=== PATIENT | male | born 1965 | race Caucasian/White ===

== ENCOUNTER 2020-06-21 09:45 | Outpatient (REF) | payer OTHER, SELFPAY ==
[2020-06-26 12:37] LABS: Testosterone, Total 140 ng/dL (250-1100)
== END 2020-06-21 09:46 | disposition home or self-care (01) ==
LOC: HO.LAB 09:45
PROVIDERS: PCP Internal Medicine Sports Medicine; Visit Provider Urology
DX: E29.1 Testicular hypofunction (principal)
CPT/HCPCS: 36415; 84403

== ENCOUNTER → 2020-08-31 13:14 | Outpatient (BNVA) | payer OTHER, SELFPAY | PROVIDERS: Visit Provider Urology ==

== ENCOUNTER 2021-02-13 09:30 | Outpatient (REF) | payer OTHER, SELFPAY ==
[2021-02-13 11:00] LABS: Hematocrit 48.2 % (42-52); Hemoglobin 16.7 g/dl (14.0-18.0); Mean Corpuscular HGB Conc 34.6 g/dl (31.0-36.0); Mean Corpuscular Hemoglobin 30.8 pg (27.0-33.0); Mean Corpuscular Volume 88.9 fL (80-98); Mean Platelet Volume 10.6 fL (9.4-12.4); Platelet Count 202 X10*3/uL (160-400); Red Blood Count 5.42 X10*6/uL (4.60-5.80); Red Cell Distribution Width 12.4 % (11.0-16.0)
[2021-02-17 11:06] LABS: Testosterone, Total 182 ng/dL (250-1100)
== END 2021-02-13 09:31 | disposition home or self-care (01) ==
LOC: HO.LAB 09:30
PROVIDERS: Visit Provider Urology
DX: Z12.5 Encounter for screening for malignant neoplasm of prostate (principal); E29.1 Testicular hypofunction; N13.8 Other obstructive and reflux uropathy; N40.1 Benign prostatic hyperplasia with lower urinary tract symptoms
CPT/HCPCS: 36415; 84153; 84403; 85027

== ENCOUNTER → 2021-03-06 12:55 | Outpatient (BNVA) | payer OTHER, SELFPAY | PROVIDERS: Visit Provider Urology ==

== ENCOUNTER 2021-04-17 08:53 | Outpatient (REF) | payer OTHER, SELFPAY ==
[2021-04-17 10:33] LABS: PSA,Total (Free>4and<10) 1.73 ng/mL (0.00-4.00)
== END 2021-04-17 08:54 | disposition home or self-care (01) ==
LOC: HO.LAB 08:53
PROVIDERS: PCP Internal Medicine; Visit Provider Urology
DX: Z12.5 Encounter for screening for malignant neoplasm of prostate (principal); R97.20 Elevated prostate specific antigen [PSA]
CPT/HCPCS: 36415; 84153

== ENCOUNTER → 2021-05-08 15:06 | Outpatient (BNVA) | payer OTHER, SELFPAY | PROVIDERS: PCP Internal Medicine; Visit Provider Urology ==

== ENCOUNTER 2021-10-16 09:05 | Outpatient (REF) | payer OTHER, SELFPAY ==
[2021-10-22 02:21] LABS: Testosterone, Total 756 ng/dL (250-1100)
== END 2021-10-16 09:06 | disposition home or self-care (01) ==
LOC: HO.LAB 09:05
PROVIDERS: PCP Internal Medicine; Visit Provider Urology
DX: E29.1 Testicular hypofunction (principal); Z12.5 Encounter for screening for malignant neoplasm of prostate
CPT/HCPCS: 36415; 84153; 84403

== ENCOUNTER → 2021-11-06 15:00 | Outpatient (BNVA) | payer OTHER, SELFPAY | PROVIDERS: PCP Internal Medicine; Visit Provider Urology | DX: R97.20 Elevated prostate specific antigen [PSA] (principal) ==

== ENCOUNTER 2022-04-17 08:48 | Outpatient (REF) | payer OTHER, SELFPAY ==
[2022-04-17 10:01] LABS: Hematocrit 49.5 % (42.0-52.0)
[2022-04-17 10:52] LABS: Prostate Specific Antigen 3.18 ng/mL (<0.05-4.0)
[2022-04-22 18:52] LABS: Testosterone, Total 691 ng/dL (250-1100)
== END 2022-04-17 08:49 | disposition home or self-care (01) ==
LOC: HO.LAB 08:48
PROVIDERS: PCP Internal Medicine; Visit Provider Urology
DX: Z12.5 Encounter for screening for malignant neoplasm of prostate (principal); E29.1 Testicular hypofunction
CPT/HCPCS: 36415; 84153; 84403; 85014

== ENCOUNTER 2022-05-10 08:55 | Outpatient (AMB) | payer OTHER, SELFPAY ==
--- NOTE | 2022-05-10 08:55 | A.OFFVIS_ITS ---
Intake Intake Visit Reasons: 6 month Labs(set) Intake Note: Patient is present for Telephone LABS Follow Up Urology Medication: Tadalafil, Testosterone Blood Thinner: None Allergies No Known Allergies Allergy (Verified 06/19/23 10:26) Medication List - Last Reconciled 05/10/22 by Yunior Lackey MD methocarbamol 750 mg PO BEDTIME PRN tadalafil 5 mg PO DAILY PRN 90 days testosterone cypionate (Depo-Testosterone) 100 mg (0.5 mL) IM QWEEK 4 weeks vardenafil mg PO HPI HPI Comments History of Present Illness Details Maxime is a pleasant male. He is seen for the following urologic conditions - hypogonadism - erectile dysfunction Telemedicine evaluation 15 minute consultation [employer] zehra Video attempted Good response to 5 mg tadalafil Would like to continue Testosterone in stable patent Hypogonadism Long-term replacement Uses IM injections of testosterone 1 week cycle - Inj Sat Lab Wed Laboratory investigations - typically runs in the 5-600 Laboratory investigations - 12/26 PSA 1.5, T 797, 02/27 PSA 7.8, T 1 82, 04/29 1.7, 10/28 T 750 2.0 48, 04/30 691 P 3.2 49.5 6 month follow-up lab work Erectile dysfunction Able to obtain but cannot maintain erection Good response to daily tadalafil [facility] Medical History Hypogonadism in male Review of Systems Const All systems reviewed & are unremarkable except as noted in HPI and below Reports no additional complaints Resp Reports no additional complaints GI Reports no additional complaints Reports as per HPI Musc Reports no additional complaints Physical Exam Telemedicine evaluation Appropriate responses Regular breathing rate and rhythm HEENT Head: Yes normal to inspection Ears: hearing grossly normal bilaterally Eyes General: appearance normal, both eyes and all related structures Neck Neck: Yes normal visual inspection Chest Chest palpation & inspection: normal inspection of the chest Resp Effort & Inspection: normal respiratory effort and able to speak in complete sentences Assessment & Plan Assessment & Plan (1) Erectile dysfunction due to arterial insufficiency: Code(s): N52.01 - Erectile dysfunction due to arterial insufficiency (2) Hypogonadism in male: Code(s): E29.1 - Testicular hypofunction (3) Elevated PSA: Code(s): R97.20 - Elevated prostate specific antigen [PSA] Plan Continue current therapy Medications: Refilled testosterone cypionate (Depo-Testosterone) 100 mg (0.5 mL) IM QWEEK 2 mL 5RF 4 weeks E29.1 - Testicular hypofunction, [id number] tadalafil 5 mg PO DAILY PRN 90 tabs 1RF sexual activity 90 days N52.01 - Erectile dysfunction due to arterial insufficiency Patient Instructions: The patient had an opportunity to ask questions regarding treatment plan. All questions were answered. Imaging studies, laboratory studies and physical exam results were discussed and reviewed in detail. No major barriers to understanding were identified. The patient expressed understanding and agreement with the above treatment plan. The patient is aware they should contact our office by phone for worsening of their current condition or the appearance of new symptoms. Compliance is encouraged with any medications and followup testing that is ordered. It is a privilege to be allowed the opportunity to participate in the urologic care of your patient. If you have any questions or concerns regarding treatment for the above conditions please do not hesitate to contact me. The office telephone contact is [phone]. This note is constructed using voice recognition software. While every effort has been made to ensure accuracy anti air warfare operations officer errors may have been included. Yours sincerely, Dr Yunior Lackey MD, [facility] Telehealth Telehealth Location of provider rendering services: practice address Location of patient: address on file Patient Identification confirmed using: Name, : Yes Telehealth method: voice only Patient verbally consented to treatment: Yes Patient verbally consented to billing insurance company: Yes Patient informed of any privacy concerns related to visit: Yes Coding Level of Care Code Tele Est Pt Level 3 (65928) Diagnoses Erectile dysfunction due to arterial insufficiency N52.01 Hypogonadism in male E29.1 Elevated PSA R97.20
== END 2022-05-10 11:27 | disposition home or self-care (01) ==
LOC: HO.HUSH 08:55
PROVIDERS: PCP Internal Medicine; Visit Provider Urology
DX: N52.01 Erectile dysfunction due to arterial insufficiency (principal); E29.1 Testicular hypofunction; R97.20 Elevated prostate specific antigen [PSA]
CPT/HCPCS: 99442; 99499

== ENCOUNTER 2022-11-08 07:48 | Outpatient (REF) | payer OTHER, SELFPAY ==
[2022-11-08 09:03] LABS: Hematocrit 51.3 % (42.0-52.0); Hemoglobin 17.8 g/dl (14.0-18.0); Mean Corpuscular HGB Conc 34.7 g/dl (31.0-36.0); Mean Corpuscular Hemoglobin 30.3 pg (27.0-33.0); Mean Corpuscular Volume 87.4 fL (80.0-98.0); Platelet Count 196 X10*3/uL (160-400); Red Blood Count 5.87 X10*6/uL (4.60-5.80); Red Cell Distribution Width 12.4 % (11.0-16.0); White Blood Count 5.5 X10*3/uL (4.8-10.8)
[2022-11-08 09:48] LABS: PSA,Total (Free>4and<10) 3.89 ng/mL (0.00-4.00)
[2022-11-15 19:04] LABS: Testosterone, Free 192.6 pg/mL (35.0-155.0); Testosterone, Total 993 ng/dL (250-1100)
== END 2022-11-08 07:49 | disposition home or self-care (01) ==
LOC: HO.LAB 07:48
PROVIDERS: PCP Internal Medicine; Visit Provider Urology
DX: Z12.5 Encounter for screening for malignant neoplasm of prostate (principal); E29.1 Testicular hypofunction; R97.20 Elevated prostate specific antigen [PSA]
CPT/HCPCS: 36415; 84153; 84402; 84403; 85027

== ENCOUNTER 2022-11-26 11:35 | Outpatient (AMB) | payer OTHER, SELFPAY ==
--- NOTE | 2022-11-26 11:48 | A.OFFVIS_ITS ---
Intake Intake Visit Reasons: 6M LABS(set) Intake Note: Patient presents today for 6mo follow-up with Labs Results. Technical Project Coordinator Required: No Accompanied by: Self / Same As Patient Allergies No Known Allergies Allergy (Verified 11/26/22 11:49) Medication List - Last Reconciled 11/26/22 by Yunior Lackey MD methocarbamol 750 mg PO BEDTIME PRN tadalafil 5 mg PO DAILY PRN 90 days testosterone cypionate (Depo-Testosterone) 80 mg (0.4 mL) IM QWEEK 4 weeks vardenafil mg PO HPI HPI Comments History of Present Illness Details Maxime is a pleasant male. He is seen for the following urologic conditions - hypogonadism - erectile dysfunction Friday labs Hypogonadism Long-term replacement Uses IM injections of testosterone 1 week cycle - Inj Sat Lab Wed Laboratory investigations - typically runs in the 5-600 Laboratory investigations - 12/26 PSA 1.5, T 797, 02/27 PSA 7.8, T 1 82, 04/29 1.7, 10/28 T 750 2.0 48, 04/30 691 P 3.2 49.5, 11/29 993 3.9 51 6 month follow-up lab work Erectile dysfunction Able to obtain but cannot maintain erection Good response to daily tadalafil [facility] Medical History Hypogonadism in male Review of Systems Const Denies chills and Denies fever(s) Card Reports no additional complaints and Denies syncope Resp Denies cough GI Denies abdominal pain and Denies heartburn Reports as per HPI and Denies change in libido Neuro Denies syncope Psych Denies change in libido Endo Denies change in libido Physical Exam Const General: cooperative, healthy appearing, comfortable and no acute distress Orientation/consciousness: patient oriented x3 HEENT Face and sinus: Yes normal facial exam Mouth: moist mucous membranes Neck Neck: Yes normal visual inspection, Yes full ROM and Yes trachea midline Chest Chest palpation & inspection: normal inspection of the chest Resp Effort & Inspection: normal respiratory effort, able to speak in complete sentences and no respiratory distress GI Inspection: Yes normal to inspection Back/Spine/Pelvis Cervical Spine: normal cervical lordosis Thoracic/Lumbar Spine: thoracic and lumbar spine normal to inspection Skin General skin exam: no rashes or lesions noted Neuro General: patient oriented x3, gait normal, tone normal and moves all extremities Extrem General: Yes normal to inspection and Yes capillary refill normal Assessment & Plan Assessment & Plan (1) Elevated PSA: Code(s): R97.20 - Elevated prostate specific antigen [PSA] (2) Erectile dysfunction due to arterial insufficiency: Code(s): N52.01 - Erectile dysfunction due to arterial insufficiency (3) Hypogonadism in male: Code(s): E29.1 - Testicular hypofunction Plan Six month follow-up Orders: Orders Complete Blood Count no Diff 6 Months E29.1 - Testicular hypofunction Prostate Specific Antigen 6 Months E29.1 - Testicular hypofunction Testosterone, Total 6 Months E29.1 - Testicular hypofunction Patient Instructions: Imaging studies, laboratory and physical exam results were discussed and reviewed in detail. No major barriers to patient understanding were identified. An opportunity to ask questions regarding the treatment plan was provided. All questions were answered. The patient expressed understanding and agreement with the above treatment plan. The patient is aware they should contact our office by phone for worsening of their current condition or the appearance of new urologic symptoms. Compliance is encouraged with any medications and followup testing that is ordered. It is a privilege to participate in the urologic care of your patient. If you have any questions or concerns regarding treatment for the above conditions, or other urologic issues, please do not hesitate to contact me. The office telephone contact is [phone]. This note is constructed using voice recognition software. While every effort has been made to ensure accuracy prototype fabricator errors may have been included. Yours sincerely, Dr Yunior Lackey MD, [facility] - Urology Providers of Expert, Compassionate Care for the Genitourinary System Coding Level of Care Code Est Pt Level 3 (35973) Diagnoses Elevated PSA R97.20 Erectile dysfunction due to arterial insufficiency N52.01 Hypogonadism in male E29.1
== END 2022-11-26 12:55 | disposition home or self-care (01) ==
LOC: HO.HUSH 11:35
PROVIDERS: PCP Internal Medicine; Visit Provider Urology
DX: R97.20 Elevated prostate specific antigen [PSA] (principal); N52.01 Erectile dysfunction due to arterial insufficiency; E29.1 Testicular hypofunction
CPT/HCPCS: 99213

== ENCOUNTER → 2022-11-26 11:35 | Outpatient (BNVA) | payer OTHER, SELFPAY | PROVIDERS: PCP Internal Medicine; Visit Provider Urology ==

== ENCOUNTER 2023-05-09 07:27 | Outpatient (REF) | payer OTHER, SELFPAY ==
[2023-05-09 07:44] LABS: Hemoglobin 17.1 g/dl (14.0-18.0); Mean Corpuscular HGB Conc 34.2 g/dl (31.0-36.0); Mean Corpuscular Hemoglobin 31.1 pg (27.0-33.0); Mean Corpuscular Volume 90.9 fL (80.0-98.0); Mean Platelet Volume 10.5 fL (9.4-12.4); Platelet Count 214 X10*3/uL (160-400); Red Cell Distribution Width 12.4 % (11.0-16.0); White Blood Count 5.1 X10*3/uL (4.8-10.8)
[2023-05-09 08:35] LABS: Prostate Specific Antigen 6.05 ng/mL (<0.05-4.0)
[2023-05-13 14:13] LABS: Testosterone, Total 628 ng/dL (250-1100)
== END 2023-05-09 07:28 | disposition home or self-care (01) ==
LOC: HO.LAB 07:27
PROVIDERS: PCP Internal Medicine; Visit Provider Urology
DX: Z12.5 Encounter for screening for malignant neoplasm of prostate (principal); E29.1 Testicular hypofunction
CPT/HCPCS: 36415; 84153; 84403; 85027

== ENCOUNTER 2023-06-19 10:23 | Outpatient (AMB) | payer OTHER, SELFPAY ==
--- NOTE | 2023-06-19 10:24 | MHC.OFFVIS ---
Intake Intake Visit Reasons: LABS Follow Up (set) Intake Note: Patient is Present for Telephone Follow Up labs Urology Med: Tadalafil, Testosterone Antibiotic Allergy: None Blood Thinner: None PSA: 05/09/2023- 6.05 Total Testosterone- 05/09/2023- 628 Allergies No Known Allergies Allergy (Verified 06/19/23 10:26) HPI HPI Comments History of Present Illness Details Maxime is a pleasant male. He is seen for the following urologic conditions - hypogonadism - erectile dysfunction Telemedicine Evaluation 15 min Consultation [employer] Susi Video Discussed current lab work Testosterone in good range Using 0.4 cc weekly PSA noted to jump Prior jump in 2020 Discussed PSA variability with coffee, exercise, ejaculation within 24 hours He is comfortable waiting and repeating labs in 6 months Continue good response to daily Cialis Friday labs Hypogonadism Long-term replacement Uses IM injections of testosterone 1 week cycle - Inj Sat Lab Wed Laboratory investigations - typically runs in the 5-600 Laboratory investigations - 12/26 PSA 1.5, T 797, 02/27 PSA 7.8, T 182, 04/29 1.7, 10/28 T 750 2.0 48, 04/30 691 P 3.2 49.5, 11/29 993 3.9 51, 05/31 628 6 50 6 month follow-up lab work Erectile dysfunction Able to obtain but cannot maintain erection Good response to daily tadalafil PFSH Medical History Hypogonadism in male Review of Systems Const All systems reviewed & are unremarkable except as noted in HPI and below Reports no additional complaints Resp Reports no additional complaints GI Reports no additional complaints Reports as per HPI Musc Reports no additional complaints Physical Exam Telemedicine evaluation Appropriate responses Regular breathing rate and rhythm HEENT Head: Yes normal to inspection Ears: hearing grossly normal bilaterally Eyes General: appearance normal, both eyes and all related structures Neck Neck: Yes normal visual inspection Chest Chest palpation & inspection: normal inspection of the chest Resp Effort & Inspection: normal respiratory effort and able to speak in complete sentences Assessment & Plan Assessment & Plan (1) Elevated PSA: Code(s): R97.20 - Elevated prostate specific antigen [PSA] (2) Erectile dysfunction due to arterial insufficiency: Code(s): N52.01 - Erectile dysfunction due to arterial insufficiency (3) Hypogonadism in male: Code(s): E29.1 - Testicular hypofunction Plan 6 month follow-up Orders: Orders Prostate Specific Antigen 6 Months E29.1 - Testicular hypofunction Testosterone, Total 6 Months E29.1 - Testicular hypofunction Complete Blood Count no Diff 6 Months E29.1 - Testicular hypofunction Medications: Refilled tadalafil 5 mg PO DAILY 90 days PRN 90 tabs 1RF sexual activity N52.01 - Erectile dysfunction due to arterial insufficiency testosterone cypionate (Depo-Testosterone) 80 mg (0.4 mL) IM QWEEK 4 weeks 2 mL 5RF E29.1 - Testicular hypofunction, [id number] Patient Instructions: Imaging studies, laboratory and physical exam results were discussed and reviewed in detail. No major barriers to patient understanding were identified. An opportunity to ask questions regarding the treatment plan was provided. All questions were answered. The patient expressed understanding and agreement with the above treatment plan. The patient is aware they should contact our office by phone for worsening of their current condition or the appearance of new urologic symptoms. Compliance is encouraged with any medications and followup testing that is ordered. It is a privilege to participate in the urologic care of your patient. If you have any questions or concerns regarding treatment for the above conditions, or other urologic issues, please do not hesitate to contact me. The office telephone contact is [phone]. This note is constructed using voice recognition software. While every effort has been made to ensure accuracy continuous weld pipe mill supervisor errors may have been included. Yours sincerely, Dr Yunior Lackey MD, [facility] - Urology Providers of Expert, Compassionate Care for the Genitourinary System Telehealth Telehealth Location of provider rendering services: practice address Location of patient: address on file Patient Identification confirmed using: Name, : Yes Telehealth method: video Patient verbally consented to treatment: Yes Patient verbally consented to billing insurance company: Yes Patient informed of any privacy concerns related to visit: Yes Coding Level of Care Code Tele Est Pt Level 4 (94325) Diagnoses Elevated PSA R97.20 Erectile dysfunction due to arterial insufficiency N52.01 Hypogonadism in male E29.1
== END 2023-06-19 10:56 | disposition home or self-care (01) ==
LOC: HO.HUSH 10:23
PROVIDERS: PCP Internal Medicine; Visit Provider Urology
DX: R97.20 Elevated prostate specific antigen [PSA] (principal); N52.01 Erectile dysfunction due to arterial insufficiency; E29.1 Testicular hypofunction
CPT/HCPCS: 99213

== ENCOUNTER → 2023-06-19 10:23 | Outpatient (BNVA) | payer OTHER, SELFPAY | PROVIDERS: PCP Internal Medicine; Visit Provider Urology ==

== ENCOUNTER 2023-11-21 08:15 | Outpatient (REF) | payer OTHER, SELFPAY ==
[2023-11-21 09:47] LABS: Hematocrit 50.3 % (42.0-52.0); Hemoglobin 17.6 g/dl (14.0-18.0); Mean Corpuscular Hemoglobin 31.2 pg (27.0-33.0); Mean Corpuscular Volume 89.2 fL (80.0-98.0); Mean Platelet Volume 10.8 fL (9.4-12.4); Platelet Count 233 X10*3/uL (160-400); Red Blood Count 5.64 X10*6/uL (4.60-5.80); Red Cell Distribution Width 12.9 % (11.0-16.0); White Blood Count 5.9 X10*3/uL (4.8-10.8)
[2023-11-21 10:29] LABS: Prostate Specific Antigen 4.46 ng/mL (<0.05-4.0)
[2023-11-27 13:34] LABS: Testosterone, Total 800 ng/dL (250-1100)
== END 2023-11-21 08:16 | disposition home or self-care (01) ==
LOC: HO.LAB 08:15
PROVIDERS: PCP Internal Medicine Hematology & Oncology; Visit Provider Urology
DX: E29.1 Testicular hypofunction (principal); Z12.5 Encounter for screening for malignant neoplasm of prostate
CPT/HCPCS: 36415; 84153; 84403; 85027

== ENCOUNTER 2023-12-25 10:30 | Outpatient (AMB) | payer OTHER, SELFPAY ==
--- NOTE | 2023-12-25 10:39 | MHC.OFFVIS ---
Intake Visit Reasons: 6m/labs(set) Intake Note: Patient presents today for follow up on: Elevated PSA, Erectile Dysfunction, Hypogonadism, and labs Urology Med: Tadalafil, Testosterone Antibiotic Allergy: None Blood Thinner: None PSA: 4.46 Total Testosterone: 800 Administrative Law Judge Required: No Accompanied by: Self / Same As Patient Allergies No Known Allergies Allergy (Verified 12/25/23 10:47) Medication List - Last Reconciled 12/25/23 by Yunior Lackey MD multivitamin 1 tab PO DAILY tadalafil 5 mg PO DAILY PRN 90 days testosterone cypionate (Depo-Testosterone) 80 mg (0.4 mL) IM QWEEK 4 weeks HPI Comments Details: Maxime is a pleasant male. He is seen for the following urologic conditions - hypogonadism - erectile dysfunction Six-month follow-up Discussed current lab work Testosterone in good range Using 0.4 cc weekly Persistent PSA variability Discussed PSA variability with coffee, exercise, ejaculation within 24 hours He is comfortable with current process Continue good response to daily Cialis Friday labs Hypogonadism Long-term replacement Uses IM injections of testosterone 1 week cycle - Inj Sat Lab Wed Laboratory investigations - typically runs in the 5-600 Laboratory investigations - 12/26 PSA 1.5, T 797, 02/27 PSA 7.8, T 182, 04/29 1.7, 10/28 T 750 2.0 48, 04/30 691 P 3.2 49.5, 11/29 993 3.9 51, 05/31 628 6.0 50, 11/30 T 800 Hct 50 PSA 4.5 6 month follow-up lab work Erectile dysfunction Able to obtain but cannot maintain erection Good response to daily tadalafil [facility] Medical History Hypogonadism in male Review of Systems Const Denies chills and Denies fever(s) Card Reports no additional complaints and Denies syncope Resp Denies cough GI Denies abdominal pain and Denies heartburn Reports as per HPI and Denies change in libido Neuro Denies syncope Psych Denies change in libido Endo Denies change in libido Physical Exam Const General: cooperative, healthy appearing, comfortable and no acute distress Orientation/consciousness: patient oriented x3 HEENT Face and sinus: Yes normal facial exam Mouth: moist mucous membranes Neck Neck: Yes normal visual inspection, Yes full ROM and Yes trachea midline Chest Chest palpation & inspection: normal inspection of the chest Resp Effort & Inspection: normal respiratory effort, able to speak in complete sentences and no respiratory distress GI Inspection: Yes normal to inspection Back/Spine/Pelvis Cervical Spine: normal cervical lordosis Thoracic/Lumbar Spine: thoracic and lumbar spine normal to inspection Skin General skin exam: no rashes or lesions noted Neuro General: patient oriented x3, gait normal, tone normal and moves all extremities Extrem General: Yes normal to inspection and Yes capillary refill normal Assessment & Plan Assessment & Plan (1) Erectile dysfunction due to arterial insufficiency: Code(s): N52.01 - Erectile dysfunction due to arterial insufficiency Category: Medical (2) Hypogonadism in male: Code(s): E29.1 - Testicular hypofunction Category: Medical Plan Six-month follow-up lab work tele Orders: Orders Prostate Specific Antigen 6 Months E29.1 - Testicular hypofunction Testosterone, Total 6 Months E29.1 - Testicular hypofunction Complete Blood Count no Diff 6 Months E29.1 - Testicular hypofunction Medications: Refilled tadalafil 5 mg PO DAILY 90 days PRN 90 tabs 1RF sexual activity N52.01 - Erectile dysfunction due to arterial insufficiency testosterone cypionate (Depo-Testosterone) 80 mg (0.4 mL) IM QWEEK 4 weeks 2 mL 5RF E29.1 - Testicular hypofunction, [id number] Patient Instructions: Imaging studies, laboratory and physical exam results were discussed and reviewed in detail. No major barriers to patient understanding were identified. An opportunity to ask questions regarding the treatment plan was provided. All questions were answered. The patient expressed understanding and agreement with the above treatment plan. The patient is aware they should contact our office by phone for worsening of their current condition or the appearance of new urologic symptoms. Compliance is encouraged with any medications and followup testing that is ordered. It is a privilege to participate in the urologic care of your patient. If you have any questions or concerns regarding treatment for the above conditions, or other urologic issues, please do not hesitate to contact me. The office telephone contact is [phone]. This note is constructed using voice recognition software. While every effort has been made to ensure accuracy mechanical insulator errors may have been included. Yours sincerely, Dr Yunior Lackey MD, [facility] - Urology Providers of Expert, Compassionate Care for the Genitourinary System Coding Level of Care Code Est Pt Level 3 (04108) Diagnoses Erectile dysfunction due to arterial insufficiency N52.01 Hypogonadism in male E29.1
== END 2023-12-25 10:55 | disposition home or self-care (01) ==
PROVIDERS: PCP Internal Medicine; Visit Provider Urology
DX: N52.01 Erectile dysfunction due to arterial insufficiency (principal); E29.1 Testicular hypofunction
CPT/HCPCS: 99213

== ENCOUNTER → 2023-12-25 10:30 | Outpatient (BNVA) | payer OTHER, SELFPAY | PROVIDERS: PCP Internal Medicine; Visit Provider Urology ==

== ENCOUNTER 2024-06-17 07:27 | Outpatient (REF) | payer BC, SELFPAY ==
[2024-06-17 07:59] LABS: Hematocrit 48.7 % (42.0-52.0); Hemoglobin 17.3 g/dl (14.0-18.0); Mean Corpuscular HGB Conc 35.5 g/dl (31.0-36.0); Mean Corpuscular Hemoglobin 30.6 pg (27.0-33.0); Mean Corpuscular Volume 86.2 fL (80.0-98.0); Mean Platelet Volume 9.9 fL (9.4-12.4); Platelet Count 214 X10*3/uL (160-400); Red Blood Count 5.65 X10*6/uL (4.60-5.80); Red Cell Distribution Width 12.2 % (11.0-16.0); White Blood Count 5.2 X10*3/uL (4.8-10.8)
[2024-06-17 08:37] LABS: Prostate Specific Antigen 3.55 ng/mL (<0.05-4.0)
[2024-06-22 02:23] LABS: Testosterone, Total 378 ng/dL (250-1100)
== END 2024-06-17 07:28 | disposition home or self-care (01) ==
LOC: HO.LAB 07:27
PROVIDERS: PCP Internal Medicine; Visit Provider Urology
DX: E29.1 Testicular hypofunction (principal); Z12.5 Encounter for screening for malignant neoplasm of prostate
CPT/HCPCS: 36415; 84153; 84403; 85027

== ENCOUNTER 2024-07-13 15:09 | Outpatient (AMB) | payer BC, SELFPAY ==
--- NOTE | 2024-07-13 15:10 | A.OFFVIS_ITS ---
Intake Visit Reasons: 6m/labs Intake Note: Patient is present for 6M/LABS Urology Medication:TADALAFIL,TESTOSTERONE Antibiotic Allergy:NONE Blood Thinner:NONE Manager Dish Required: No Allergies No Known Allergies Allergy (Verified 07/13/24 15:10) HPI Comments Details: Maxime is a pleasant male. He is seen for the following urologic conditions - hypogonadism - erectile dysfunction Six-month follow-up Telemedicine Evaluation 15 min Consultation [employer] Sus[employer] Video Discussed current lab work Testosterone low end range but lab work was delayed Using 0.4 cc weekly Persistent PSA variability Discussed PSA variability with coffee, exercise, ejaculation within 24 hours He is comfortable with current process Continue good response to daily Cialis Hypogonadism Long-term replacement Uses IM injections of testosterone 1 week cycle - Inj Sat Lab Wed Laboratory investigations - typically runs in the 5-600 Laboratory investigations - 12/26 PSA 1.5, T 797, 02/27 PSA 7.8, T 182, 04/29 1.7, 10/28 T 750 2.0 48, 04/30 691 P 3.2 49.5, 11/29 993 3.9 51, 05/31 628 6.0 50, 11/30 T 800 Hct 50 PSA 4.5, 07/03 380 6 month follow-up lab work Erectile dysfunction Able to obtain but cannot maintain erection Good response to daily tadalafil PFSH Medical History Hypogonadism in male Review of Systems Const All systems reviewed & are unremarkable except as noted in HPI and below Reports no additional complaints Resp Reports no additional complaints GI Reports no additional complaints Reports as per HPI Musc Reports no additional complaints Physical Exam Telemedicine evaluation Appropriate responses Regular breathing rate and rhythm HEENT Head: Yes normal to inspection Ears: hearing grossly normal bilaterally Eyes General: appearance normal, both eyes and all related structures Neck Neck: Yes normal visual inspection Chest Chest palpation & inspection: normal inspection of the chest Resp Effort & Inspection: normal respiratory effort and able to speak in complete sentences Telehealth Telehealth Telehealth Platform: [employer] Location of provider rendering services: practice address Location of patient: address on file Patient Identification confirmed using: Name, : Yes Telehealth method: video Patient verbally consented to treatment: Yes Patient verbally consented to billing insurance company: Yes Patient informed of any privacy concerns related to visit: Yes Minutes spent on Phone/Video with Pt.: 15 Assessment & Plan Assessment & Plan (1) Erectile dysfunction due to arterial insufficiency: Code(s): N52.01 - Erectile dysfunction due to arterial insufficiency Category: Medical (2) Elevated PSA: Code(s): R97.20 - Elevated prostate specific antigen [PSA] Category: Medical Plan Six-month follow-up Medication refill Orders: Orders Complete Blood Count no Diff 6 Months E29.1 - Testicular hypofunction Prostate Specific Antigen 6 Months E29.1 - Testicular hypofunction Testosterone, Total 6 Months E29.1 - Testicular hypofunction Medications: Refilled testosterone cypionate (Depo-Testosterone) 80 mg (0.4 mL) IM QWEEK 4 weeks 2 mL 5RF E29.1 - Testicular hypofunction, [id number] tadalafil 5 mg PO DAILY 90 days PRN 90 tabs 1RF sexual activity N52.01 - Erectile dysfunction due to arterial insufficiency Patient Instructions: This note is constructed using voice recognition software. While every effort has been made to ensure accuracy plant utilities engineer errors may have been included. Imaging studies, laboratory and physical exam results were discussed and reviewed in detail. No major barriers to patient understanding were identified. An opportunity to ask questions regarding the treatment plan was provided. All questions were answered. The patient expressed understanding and agreement with the above treatment plan. The patient is aware they should contact our office by phone for worsening of their current condition or the appearance of new urologic symptoms. Compliance is encouraged with any medications and followup testing that is ordered. It is a privilege to participate in the urologic care of your patient. If you have any questions or concerns regarding treatment for the above conditions, or other urologic issues, please do not hesitate to contact me. The office telephone contact is [phone]. Sincerely, Dr Yunior Lackey MD, [facility] - Urology Compassionate Specialist Care for the Genitourinary System Coding Level of Care Code Tele Est Pt Level 4 (30610) Complex EM visit Add On G2211 Diagnoses Erectile dysfunction due to arterial insufficiency N52.01 Elevated PSA R97.20
== END 2024-07-13 15:43 | disposition home or self-care (01) ==
LOC: HO.HUSH 15:09
PROVIDERS: PCP Internal Medicine; Visit Provider Urology
DX: N52.01 Erectile dysfunction due to arterial insufficiency (principal); R97.20 Elevated prostate specific antigen [PSA]
CPT/HCPCS: 99214

== ENCOUNTER → 2024-07-13 15:09 | Outpatient (BNVA) | payer BC, SELFPAY | PROVIDERS: PCP Internal Medicine; Visit Provider Urology ==

== ENCOUNTER 2024-12-29 08:11 | Outpatient (REF) | payer BC, SELFPAY ==
--- OUTSIDE RECORDS SUMMARY | 2024-12-29 08:20 | XMS_ITS | Clinical Summary ---
Author Organization [facility] Address [address] [place] [address] Care Team Providers Care Bath Steward/Stewardess Name Role Phone Francisca Shankar MD Primary Care Provider [phone] Encounters Date Type Department Care Team Description 12/23/2024 Telephone Adult [address] [id number] Francisca Shankar MD appointment (Scheduled via my chart by pt -not a Dr Escalante Patient? 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 10/21/2006 DX:Psychosexual dysfunctio n with inhibited sexual excitement Esophageal reflux 08/23/2009 DX:Esophageal reflux Tubular adenoma of colon 12/27/2020 DX:Tubu lar adenoma of colon; COMMENT: CN 10/27/20, rpt 5 years Hx laparoscopic cholecystectomy DX:Hx laparoscopic cholecystectomy Family History Medical History Relation Name Comments Hypertension Father Stroke Maternal Grandfather Stroke Maternal Grandmother Colon cancer Paternal Grandmother Relation Name Status Comments Daughter Alive healthy Maribel Father Alive HTN- '41 Maternal Grandfather (Age 80's) stroke Maternal Grandmother (Age 70's) stroke Mother Alive healthy-60s Paternal Grandfather (Age 90's) old age Paternal Grandmother (Age 80's) colon cancer Sister 1 Alive [facility] y Sister 2 Alive Marlyn healthy Son Alive 22-healthy Kenny sosa Social History Tobacco Use Types Packs/Day Years Used Date Smoking Tobacco: Never Smokeless Tobacco: Never Alcohol Use Standard Drinks/Week Comments Yes 0 (1 standard drink = 0.6 oz pur e alcohol) Sex and Gender Information Value Date Recorded Sex Assigned at Not on file Legal Sex Male 12:35 AM EST Gender Identity Not on file Sexual Orientation Not on file Obstetrics History Plan of Treatment Health Maintenance Due Date Last Done Comments Pneumococcal Vaccine: 50+ Years (1 of 2 - PCV) 12/20/1983 Zoster Vaccines (1 of 2) 2014 Depression Screening 06/09/2024 Cholesterol Screening (Lipid Panel) 09/02/2024 Colorectal Cancer Screening: Colonoscopy 09/02/2024 HIV Screening 09/02/2024 Hepatitis C Screening 09/02/2024 Social Influencers of Health Screening 09/02/2024 RSV Immunization Adult Patients (1 - Risk 60-74 years 1-dose series) 2024 Influenza Vaccine (#1) 2025 DTaP,Tdap,and Td Vaccines (3 - Td or Tdap) 09/18/2030 09/18/2020, 10/21/2006 COVID-19 Vaccine Completed 02/23/2024, 11/30/2020, 11/09/2020 HIB Vaccines Aged Out No longer eligi ble based on patient's age to complete this topic HPV Vaccines Aged Out No longer eligi ble based on patient's age to complete this topic Hepatitis A Vaccines Aged Out No long er eligible based on patient's age to complete this topic Hepatitis B Vaccines Aged Out No long er eligible based on patient's age to complete this topic IPV Vaccines Aged Out No longer eligi ble based on patient's age to complete this topic MMR Vaccines Aged Out No longer eligi ble based on patient's age to complete this topic Meningococcal ACWY Vaccine Aged Out N o longer eligible based on patient's age to complete this topic Meningococcal B Vaccine Aged Out No l onger eligible based on patient's age to complete this topic RSV Immunization Patients Under 20 months Aged Out No longer eligible b ased on patient's age to complete this topic Varicella Vaccines Aged Out No longer eligible based on patient's age to complete this topic Insurance [facility] Care Teams Bath Steward/Stewardess Relationship Specialty Start Date End Date Francisca Shankar MD [address] [place] [id number] PCP - General Internal Medicine 02/15/21
[2024-12-29 09:40] LABS: Hematocrit 49.5 % (42.0-52.0); Hemoglobin 17.2 g/dl (14.0-18.0); Mean Corpuscular HGB Conc 34.7 g/dl (31.0-36.0); Mean Corpuscular Hemoglobin 30.7 pg (27.0-33.0); Mean Corpuscular Volume 88.4 fL (80.0-98.0); NRBC Abs Auto 0.000 X10*3/uL (0.0-0.012); NRBC Pct Auto 0.0 /100WBC (0.0-0.2); Platelet Count 218 X10*3/uL (160-400); Red Blood Count 5.60 X10*6/uL (4.60-5.80); White Blood Count 4.9 X10*3/uL (4.8-10.8)
[2024-12-29 10:46] LABS: Prostate Specific Antigen 7.15 ng/mL (<0.05-4.0)
== END 2024-12-29 08:12 | disposition home or self-care (01) ==
LOC: HO.LAB 08:11
PROVIDERS: PCP Internal Medicine; Visit Provider Urology
DX: E29.1 Testicular hypofunction (principal)
CPT/HCPCS: 36415; 84153; 84403; 85027

== ENCOUNTER 2025-01-19 09:52 | Outpatient (AMB) | payer BC, SELFPAY ==
--- NOTE | 2025-01-19 09:59 | A.OFFVIS_ITS ---
Intake Visit Reasons: 6m/PSA Intake Note: Patient is present for 6MO FOLLOW UP Urology Medication:TADALAFIL,TESTOSTERONE Blood Thinner:NONE LABS DONE 12/29/24: PSA 7.15, TOTAL TESTO 732 [employer] Solution Architect Required: No Accompanied by: Self / Same As Patient Allergies No Known Allergies Allergy (Verified 01/19/25 10:01) HPI Comments Details: Maxime is a pleasant male. He is seen for the following urologic conditions - hypogonadism - erectile dysfunction Six-month follow-up Testosterone within target Persistent PSA variability Discussed PSA variability with coffee, exercise, ejaculation within 24 hours PSA has risen Recommend prostate MRI given age Continue good response to daily Cialis Move to nightly as had conflict with reflux medications Urinary Symptoms Review - Nocturia: Patient reports getting up once or twice a night, possibly related to increased fluid intake before bed. Hypogonadism Long-term replacement Uses IM injections of testosterone 1 week cycle - Inj Sat Lab Wed Laboratory investigations - typically runs in the 5-600 Laboratory investigations - 12/26 PSA 1.5, T 797, 02/27 PSA 7.8, T 182, 04/29 1.7, 10/28 T 750 2.0 48, 04/30 691 P 3.2 49.5, 11/29 993 3.9 51, 05/31 628 6.0 50, 11/30 T 800 Hct 50 PSA 4.5, 07/03 380, 12/31 T 730 P 7.2 H 50 6 month follow-up lab work Erectile dysfunction Able to obtain but cannot maintain erection Good response to daily tadalafil [facility] Medical History Hypogonadism in male Assessment & Plan Assessment & Plan (1) Elevated PSA: Code(s): R97.20 - Elevated prostate specific antigen [PSA] Category: Medical (2) Erectile dysfunction due to arterial insufficiency: Code(s): N52.01 - Erectile dysfunction due to arterial insufficiency Category: Medical (3) Hypogonadism in male: Code(s): E29.1 - Testicular hypofunction Category: Medical Plan Plan 1. Elevated Prostate-Specific Antigen (Psa) - Prostate MRI planned. - Follow-up in four weeks. 2. Gastroesophageal Reflux Disease (Gerd) - Switched to pantoprazole. - Adjusted tadalafil medication timing. 3. Erectile Dysfunction - Tadalafil timing changed. Discussion Notes We discussed the elevated PSA levels and the plan to perform a prostate MRI to further evaluate the situation. If the MRI is negative, no further action will be taken at this time. However, if necessary, a biopsy will be considered. We also reviewed the management of GERD symptoms, including the switch to pantoprazole and the adjustment of medication timing to alleviate reflux. The timing of tadalafil was adjusted to minimize gastrointestinal side effects, and we will follow up in four weeks to discuss the MRI results and any further steps needed. Patient Instructions - Schedule and complete the prostate MRI as discussed. - Continue taking pantoprazole as prescribed and monitor for any changes in symptoms. - Take tadalafil in the evening to reduce stomach issues. - Follow up in four weeks for MRI results discussion. Orders: Orders MR Prostate wo/w con Today R97.20 - Elevated prostate specific antigen [PSA] Patient Instructions: This note is constructed using voice recognition software. While every effort has been made to ensure accuracy motor vehicle emissions inspector errors may have been included. Imaging studies, laboratory and physical exam results were discussed and reviewed in detail. No major barriers to patient understanding were identified. An opportunity to ask questions regarding the treatment plan was provided. All questions were answered. The patient expressed understanding and agreement with the above treatment plan. The patient is aware they should contact our office by phone for worsening of their current condition or the appearance of new urologic symptoms. Compliance is encouraged with any medications and followup testing that is ordered. It is a privilege to participate in the urologic care of your patient. If you have any questions or concerns regarding treatment for the above conditions, or other urologic issues, please do not hesitate to contact me. The office telephone contact is [phone]. Sincerely, Dr Yunior Lackey MD, [facility] - Urology Compassionate Specialist Care for the Genitourinary System Coding Level of Care Code Est Pt Level 4 (81035) Diagnoses Elevated PSA R97.20 Erectile dysfunction due to arterial insufficiency N52.01 Hypogonadism in male E29.1
--- OUTSIDE RECORDS SUMMARY | 2025-01-19 10:27 | XMS_ITS | Clinical Summary ---
Author Organization [facility] [address] [place] [address] Address [address] [place], [place] Phone Care Team Providers Care Corporate Accountant Name Role Phone Francisca Shankar MD Primary Care Provider Encounters Date Type Department Care Team Description 12/23/2024 Telephone Adult Medicine [facility] [address] [place] [address] Francisca Shankar MD appointment (Scheduled via my chart by pt -not a Dr Escalante Patient? Needs new pcp rsd visit) from Last 3 Months Surgical History Surgery Date Site/Laterality Comments HERNIA REPAIR 06/09/2000 PROCEDURE: HISTORICAL HERNIA REPAIR/ING VASECTOMY 06/09/1989 PROCEDURE: TX VASECTOMY UNI/BI SPX W/POSTOP SEMEN EXAMS WISDOM TOOTH EXTRACTION PROCEDURE: HISTORICAL WISDOM TEETH EXTRACTION CHOLECYSTECTOMY 03/19/2021 PROCEDURE: [place] LAPAROSCOPY SURG CHOLECYSTECTOMY Medical History Medical History [...] (Age 80's) colon cancer [facility] Sister 2 Alive Marlyn healthy Son [...] patient's age to complete this topic Insurance [facility] Care Teams Corporate Accountant Relationship Specialty Start Date End Date Francisca Shankar MD [address] [place] [phone] PCP - General Internal Medicine 02/15/21
== END 2025-01-19 10:21 | disposition home or self-care (01) ==
LOC: HO.HUSH 09:52
PROVIDERS: PCP Internal Medicine; Visit Provider Urology
DX: R97.20 Elevated prostate specific antigen [PSA] (principal); N52.01 Erectile dysfunction due to arterial insufficiency; E29.1 Testicular hypofunction
CPT/HCPCS: 99214

== ENCOUNTER → 2025-02-28 08:18 | Outpatient (BNV) | payer BC, SELFPAY | PROVIDERS: PCP Internal Medicine; Visit Provider Radiology Diagnostic Radiology | DX: R97.20 Elevated prostate specific antigen [PSA] (principal) | CPT/HCPCS: 72197; 76377 ==

== ENCOUNTER 2025-02-28 08:31 | Outpatient (REF) | payer BC, SELFPAY ==
--- NOTE | ~2025-02-28 | MR_ITS ---
EXAMINATION: MR PROSTATE WITHOUT THEN WITH IV CONTRAST, MR EXAM UNLISTED HISTORY: R97.20 - Elevated prostate specific antigen [PSA] TECHNIQUE: 1.5T body coil survey of the pelvis was performed. Phase array coil imaging of the prostate was performed in multiplanar high resolution axial, coronal, sagittal fast spin echo T2 and axial T1 weighted imaging sequences. Axial diffusion imaging at intermediate and high field performed with ADC mapping. Next, 9 mL Gadavist was given by intravenous infusion, and dynamic axial imaging performed. 3-D reconstructions and post-processing were performed on an independent workstation by the radiologist for biopsy planning using image fusion. COMPARISON: There are no prior studies available for comparison. CLINICAL DATA: Most recent PSA: 7.15 ng/mL on 12/29/2024. PSA Density: 0.14 ng/mL squared Prostate Biopsy: None reported FINDINGS: Prostate size: 4.6 x 5.4 x 4.0 cm. Calculated prostate volume is 51.7 mL. Hemorrhage: None. Transitional Zone: There is moderate heterogeneous nodular hypertrophy of the transitional zone. Peripheral Zone: There are areas of interest in the peripheral zone as described below: Area of interest #1: Location: Right posterior peripheral zone extending from the apex to the base measuring 2.2 x 1.0 cm (series 7, images 17-23). DWI PI-RADS v2.1 score: 5 T2 PI-RADS v2.1 score: 5 DCE PI-RADS v2.1 score: + Overall PI-RADS v2.1 score: 5 Capsular contact: yes Extracapsular extension: No definite Seminal vesicle invasion: None Neurovascular bundle involvement: No definite Area of interest #2: Location: Left posterior peripheral zone extending from the apex to the base measuring approximately 2.2 x 1.1 cm (series 7, images 17-21) DWI PI-RADS v2.1 score: 5 T2 PI-RADS v2.1 score: 5 DCE PI-RADS v2.1 score: + Overall PI-RADS v2.1 score: 5 Capsular contact: yes Extracapsular extension: No definite Seminal vesicle invasion: None Neurovascular bundle involvement: No definite Seminal Vesicles/Ejaculatory Ducts: Symmetric and normal in signal and caliber. Pelvic Lymph Nodes: No obturator or internal iliac lymph nodes meeting size criteria for adenopathy. Marrow Signal: Normal marrow signal and enhancement without focal lesion identified. MR/MR Prostate wo/w con IMPRESSION: Areas of interest in the posterior peripheral zones bilaterally, highly suspicious for clinically significant prostate carcinoma. PI-RADS 5: Very high (clinically significant cancer is highly likely to be present) PI-RADS Assessment Categories PI-RADS 1: Very low (clinically significant cancer is highly unlikely to be present) PI-RADS 2: Low (clinically significant cancer is unlikely to be present) PI-RADS 3: Intermediate (the presence of clinically significant cancer is equivocal) PI-RADS 4: High (clinically significant cancer is likely to be present) PI-RADS 5: Very high (clinically significant cancer is highly likely to be present) [employer]. MR Prostate Imaging Reporting and Data System version 2.1. [email or web address] Electronically signed by: Kirk Urban MD 02/28/2025 10:13 AM EDT
--- OUTSIDE RECORDS SUMMARY | 2025-02-28 09:50 | XMS_ITS | Clinical Summary ---
Author Organization [facility] [address] [place] [address] Address [address] [place], [place] Phone Care Team Providers Care Call Center Supervisor Name Role Phone Francisca Shankar MD Primary Care Provider [phone] Encounters Date Type Department Care Team Description 12/23/2024 Telephone Adult Medicine [facility] [address] [place] [address] Francisca Shankar MD from Last 3 Months Surgical History Surgery Date Site/Laterality Comments HERNIA REPAIR 06/09/2000 PROCEDURE: HISTORICAL HERNIA REPAIR/ING VASECTOMY 06/09/1989 PROCEDURE: WI VASECTOMY UNI/BI SPX W/POSTOP SEMEN EXAMS WISDOM TOOTH EXTRACTION PROCEDURE: HISTORICAL WISDOM TEETH EXTRACTION CHOLECYSTECTOMY 03/19/2021 PROCEDURE: WI LAPAROSCOPY SURG CHOLECYSTECTOMY Medical History Medical History [...] (Age 80's) colon cancer [facility] Sister 2 Alive Marlyn healthy [...] patient's age to complete this topic [place] [address] [place] [address] Care Teams Call Center Supervisor Relationship Specialty Start Date End Date Francisca Shankar MD [address] [place] [id number] PCP - General Internal Medicine 02/15/21
== END 2025-02-28 08:32 | disposition home or self-care (01) ==
LOC: HO.MRI 08:31
PROVIDERS: PCP Internal Medicine; Visit Provider Urology
DX: R97.20 Elevated prostate specific antigen [PSA] (principal)
CPT/HCPCS: 72197; 76377; A9585

== ENCOUNTER 2025-03-01 10:19 | Outpatient (AMB) | payer BC, SELFPAY ==
--- NOTE | 2025-03-01 10:19 | A.OFFVIS_ITS ---
Intake Visit Reasons: 4w/MRI Intake Note: Patient is present for 4MO FOLLOW UP Urology Medication:TADALAFIL,TESTOSTERONE,PANTROPAZOLE Blood Thinner:NONE Imaging done : MRI 02/28/25 Trust And Estates Attorney Required: No Accompanied by: Self / Same As Patient Allergies No Known Allergies Allergy (Verified 03/01/25 10:20) HPI Comments Details: Maxime is a pleasant male. He is seen for the following urologic conditions - hypogonadism - erectile dysfunction Telemedicine Evaluation 15 min Consultation Doximity Susi Video PSA MRI followup Prostate MRI does show 2 areas of interest Recommend prostate biopsy Urinary Symptoms Review - Nocturia: Patient reports getting up once or twice a night, possibly related to increased fluid intake before bed Hypogonadism Long-term replacement Uses IM injections of testosterone 1 week cycle - Inj Sat Lab Wed Laboratory investigations - typically runs in the 5-600 Laboratory investigations - 12/26 PSA 1.5, T 797, 02/27 PSA 7.8, T 182, 04/29 1.7, 10/28 T 750 2.0 48, 04/30 691 P 3.2 49.5, 11/29 993 3.9 51, 05/31 628 6.0 50, 11/30 T 800 Hct 50 PSA 4.5, 07/03 380, 12/31 T 730 P 7.2 H 50 6 month follow-up lab work Erectile dysfunction Able to obtain but cannot maintain erection Continue good response to daily Cialis Move to nightly as had conflict with reflux medications PFSH Medical History Hypogonadism in male Review of Systems Const All systems reviewed & are unremarkable except as noted in HPI and below Reports no additional complaints Resp Reports no additional complaints GI Reports no additional complaints Reports as per HPI Musc Reports no additional complaints Physical Exam Telemedicine evaluation Appropriate responses Regular breathing rate and rhythm HEENT Head: Yes normal to inspection Ears: hearing grossly normal bilaterally Eyes General: appearance normal, both eyes and all related structures Neck Neck: Yes normal visual inspection Chest Chest palpation & inspection: normal inspection of the chest Resp Effort & Inspection: normal respiratory effort and able to speak in complete sentences Telehealth Telehealth Telehealth Platform: Bgifty Location of provider rendering services: practice address Location of patient: address on file Patient Identification confirmed using: Name, : Yes Telehealth method: video Patient verbally consented to treatment: Yes Patient verbally consented to billing insurance company: Yes Patient informed of any privacy concerns related to visit: Yes Assessment & Plan Assessment & Plan (1) Elevated PSA: Code(s): R97.20 - Elevated prostate specific antigen [PSA] Category: Medical Plan Risks and benefits regarding trans rectal ultrasound with prostate biopsy were discussed. Options of continued surveillance, no treatment and biopsy were offered. The risks include but are not limited to, urinary tract infection, sepsis, difficulty urinating, bleeding into the rectum or bladder that requires intervention and transfusion,and failure to diagnose prostate cancer. The patient understands the options and the risks involved. They wish to proceed. Printed information was provided to ensure he remains off anticoagulation for the appropriate length of time. He may require cardiology or PCP clearance. An antibiotic will be administered prior to, and following the procedure Medications: New levofloxacin take 1 tablet day before procedure, 1 tablet day of procedure and 1 tablet day after procedure 500 mg PO DAILY 3 tabs 0RF 3 days R97.20 - Elevated prostate specific antigen [PSA] Patient Instructions: This note is constructed using voice recognition software. While every effort has been made to ensure accuracy central office supervisor errors may have been included. Imaging studies, laboratory and physical exam results were discussed and reviewed in detail. No major barriers to patient understanding were identified. An opportunity to ask questions regarding the treatment plan was provided. All questions were answered. The patient expressed understanding and agreement with the above treatment plan. The patient is aware they should contact our office by phone for worsening of their current condition or the appearance of new urologic symptoms. Compliance is encouraged with any medications and followup testing that is ordered. It is a privilege to participate in the urologic care of your patient. If you have any questions or concerns regarding treatment for the above conditions, or other urologic issues, please do not hesitate to contact me. The office telephone contact is [phone]. Sincerely, Dr Yunior Lackey MD, [facility] - Urology Compassionate Specialist Care for the Genitourinary System Coding Level of Care Code Tele Est Pt Level 4 (26904) Complex EM visit Add On G2211 Diagnoses Elevated PSA R97.20
--- OUTSIDE RECORDS SUMMARY | 2025-03-01 12:31 | XMS_ITS | Clinical Summary ---
Author Organization [facility] [address] [place] [address] Address [address] [place], [place] Phone Care Team Providers Care Technical Marketing Engineer Name Role Phone Francisca Shankar MD Primary Care Provider [phone] Encounters Date Type Department Care Team Description 12/23/2024 Telephone [place] [facility] [address] [place] [address] Francisca Shankar MD from Last 3 Months Surgical History Surgery Date Site/Laterality Comments HERNIA REPAIR 06/09/2000 PROCEDURE: HISTORICAL HERNIA REPAIR/ING VASECTOMY 06/09/1989 PROCEDURE: DE VASECTOMY UNI/BI SPX W/POSTOP SEMEN EXAMS WISDOM TOOTH EXTRACTION PROCEDURE: HISTORICAL WISDOM TEETH EXTRACTION CHOLECYSTECTOMY 03/19/2021 PROCEDURE: DE LAPAROSCOPY SURG CHOLECYSTECTOMY Medical History Medical History [...] (Age 80's) colon cancer Sister 1 Alive [facility] y Sister 2 Alive Marlyn healthy [...] patient's age to complete this topic [place] [place] [address] Care Teams Technical Marketing Engineer Relationship Specialty Start Date End Date Francisca Shankar MD [address] [place] [id number] PCP - General Internal Medicine 02/15/21
== END 2025-03-01 11:04 | disposition home or self-care (01) ==
LOC: HO.HUSH 10:19
PROVIDERS: PCP Internal Medicine; Visit Provider Urology
DX: R97.20 Elevated prostate specific antigen [PSA] (principal)
CPT/HCPCS: 99214

== ENCOUNTER 2025-03-18 10:02 | Outpatient (REF) | payer BC, SELFPAY ==
[2025-03-19 10:38] LABS: Lyme Abs Screen <0.90 index
== END 2025-03-18 10:03 | disposition home or self-care (01) ==
LOC: HO.WFDLDS 10:02
PROVIDERS: PCP Internal Medicine; Visit Provider Internal Medicine
DX: Z23 Encounter for immunization (principal); Z76.89 Persons encountering health services in other specified circumstances; Z12.5 Encounter for screening for malignant neoplasm of prostate; R21 Rash and other nonspecific skin eruption; R97.20 Elevated prostate specific antigen [PSA]
CPT/HCPCS: 36415; 86617; 86618; 90471; 90656; 96127

== ENCOUNTER 2025-03-18 10:02 | Outpatient (AMB) | payer BC, SELFPAY ==
--- NOTE | 2025-03-18 10:21 | MHC.PC.OV ---
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 Transferring from [facility], Dr Shankar GI: Stable on omeprazole. History of hernia repair 2009, initially at [place] then had repair at [facility]. 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 Advised wear abdominal support during lifting. He does have some diastasis History of biliary colic-s/p cholecystectomy. Gets intermittent atopic or fungal rash around the medial malleoli Urologic-follows [facility]. Biopsy of prostate scheduled for next week Colonoscopy 10/27/2020-Dr Martinez-due 5 years ROS CONSTITUTIONAL: Denies weight loss, fever and chills. HEENT: Denies changes in vision and hearing. RESPIRATORY: Denies SOB and cough. CV: Denies palpitations and CP GI: Denies abdominal pain, nausea, vomiting and diarrhea. : Denies dysuria and urinary frequency. MSK: Denies new myalgia and joint pain. SKIN: see HPI NEUROLOGICAL: Denies headache PSYCHIATRIC: Denies recent changes in mood. PHYSICAL EXAM: GENERAL: Alert and oriented x 3. NAD EYES: EOMI. Anicteric. HENT: Moist mucous membranes. No scleral icterus. No cervical lymphadenopathy. LUNGS: Clear to auscultation bilaterally. CARDIOVASCULAR: Regular rate and rhythm. No murmur. No JVD. ABDOMEN: Soft, non-tender +bs EXTREMITIES: No edema. Non-tender. SKIN: Pics-confluent slightly raised patches on the inner ankle. Not currently present NEUROLOGIC: No focal neurological deficits. CN II-XII grossly intact PSYCHIATRIC: Cooperative. 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 1. Little interest or pleasure in doing things: not at all 2. Feeling down, depressed, or hopeless: not at all 3. Trouble falling or staying asleep, or sleeping too much: not at all 4. Feeling tired or having little energy: not at all 5. Poor appetite or overeating: not at all 6. Feeling bad about yourself - or that you are a failure or have let yourself or your family down: not at all 7. Trouble concentrating on things, such as reading the newspaper or watching television: not at all 8. Moving or speaking so slowly that other people could have noticed. Or the opposite - being so fidgety or restless that you have been moving around a lot more than usual: not at all 9. Thoughts that you would be better off or of hurting yourself in some way: not at all Total score: 0 Depression Screening Interpretation: Negative Depression Screening Done: Yes 33214 - PHQ-9 Billing: Yes Source: Developed by Drs. Kirk Pereira, Asuncion Kat, Ashkan Byrne and colleagues, with an educational debi from [employer]. Thrive Questionnaire Date Thrive assessed: 03/11/25 I am a: Patient What is your living situation today?: I have a steady place to live Within the past 12 months, did the food you bought not last and you didn't have the money to get more?: Never true Within the past 12 months, did you worry whether your food would run out before you got money to buy more?: Never true Do you have trouble paying for medicines?: No Do you have trouble getting transportation to medical appointments?: No Do you have trouble paying your heating and electricity bill?: No Do you have trouble taking care of your child, family member or friend?: No Do you have trouble with day-to-day activities such as bathing, preparing meals, shopping, managing finances, etc.?: No Are you currently unemployed and looking for a job?: No Are you interested in more education?: No Please select the resources that you would like help with: None Currently or been in a relationship where the following occur: No concerns reported THRIVE Score: 0 AUDIT C Alcohol Use Questionnaire (AUDIT-C) 1. How often do you have a drink containing alcohol?: 2-4 times a month 2. How many drinks containing alcohol do you have on a typical day when you are drinking?: 1 or 2 3. How often do you have six or more drinks on one occasion?: Never Total Score: 2 GAIL-7 AMB Questionnaire GAIL-7 Date GAIL - 7 assessed: 03/18/25 Feeling nervous, anxious, or on edge: 0 = Not at all Not being able to stop or control worryin = Not at all Worrying too much about different things: 0 = Not at all Trouble relaxin = Not at all Being so restless that it is hard to sit still: 0 = Not at all Becoming easily annoyed or irritable: 0 = Not at all Feeling afraid as if something awful might happen: 0 = Not at all Total GAIL-7 score (0-4 normal; 5-9 mild; 10-14 moderate; 15-21 severe): 0 Source: Developed by Drs. Kirk Pereira, Asuncion Kat, Ashkan Byrne and colleagues, with an educational debi from [employer] GAIL-7 Assessment Billing GAIL-7 Assessment Tool: GAIL-7 Assessment 76400 Physical exam (Primary Care) Vital Signs: Last Vital Signs Temp 98.1 F 03/18/25 10:28 Pulse 65 03/18/25 10:28 Resp 12 03/18/25 10:28 BP 110/84 03/18/25 10:28 Pulse Ox 94 03/18/25 10:28 Oxygen Delivery Method Room Air 03/18/25 10:28 BMI result Body Mass Index 29.9 Tobacco/Smoking Status: Tobacco use Status Tobacco use date assessed 03/18/25 03/18/25 10:30 Patient Tobacco Use Status Never used Tobacco 03/18/25 10:30 e-Cigarette/Vaping Use Never Used 03/18/25 10:30 PHQ-9: PHQ-9 Score PHQ-9: Total score 0 03/18/25 10:44 Depression Screening Interpretation: Negative Thrive Assessment: Date of Thrive Assessment Date Thrive assessed 03/11/25 03/18/25 10:30 Currently or been in a relationship where the following occur: No concerns reported Office Procedures Flu Questionnaire Does the patient have a severe egg allergy?: No Does the patient have severe life threatening allergies?: No Does the patient have a fever or illness today?: No Has the patient ever had Guillain-Columbia Syndrome?: No Has the patient ever had any past reaction to a flu shot?: No Immunizations Fluarix [id number] (PF) 45 mcg (15 mcg x 3)/0.5 mL IM syringe Performing Provider: Jaylin Schneider MD Performing Location: [facility] Family Medicine Administered by: Nelli Childs CMA on 03/18/25 11:22 Dose Route Admin Location Dispensed Lot Number Expiration Date [facility] 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 0.5 mL IM Right Deltoid 0.5 mL [id number] 12/06/25 [id number] [employer] V[employer] Given Date VIS Provided VIS Publication Date 03/18/25 Single Vaccine 24 Eligibility Eligibility Date Funding Source Not [facility] Eligible 03/18/25 Private Coding Level of Care Code New Pt Level 4 (29928) Complex EM visit Add On G2211 Diagnoses Establishing care with new doctor, encounter for Z76.89 Rash R21 Elevated PSA R97.20 Additional Codes GAIL-7 Assessment Billing - GAIL-7 Assessment Tool: GAIL-7 Assessment 17101 ([id number]) PHQ-9 - 56536 - PHQ-9 Billing: Yes ([id number]) Assessment & Plan Assessment & Plan (1) Establishing care with new doctor, encounter for: Code(s): Z76.89 - Persons encountering health services in other specified circumstances (2) Rash: Code(s): R21 - Rash and other nonspecific skin eruption Category: Medical (3) Elevated PSA: Code(s): R97.20 - Elevated prostate specific antigen [PSA] Category: Medical Plan 59 year old to establish care Past medical, surgical, social reviewed Abnormal MRI prostate-biopsy next week GERD-stable on PPI Rash-psoriasis v/ fungal. clotrimazole ordered. Derm prn Orders: Orders Complete Blood Count Auto Diff 6 Months L40.9 - Psoriasis, unspecified, Z13.0 - Encounter for screening for diseases of the blood and blood-forming organs and certain disorders involving the immune mechanism, Z13.220 - Encounter for screening for lipoid disorders, Z13.228 - Encounter for screening for other metabolic disorders Comprehensive Met. Panel 6 Months L40.9 - Psoriasis, unspecified, Z13.0 - Encounter for screening for diseases of the blood and blood-forming organs and certain disorders involving the immune mechanism, Z13.220 - Encounter for screening for lipoid disorders, Z13.228 - Encounter for screening for other metabolic disorders TSH reflex Free T4 6 Months L40.9 - Psoriasis, unspecified, Z13.0 - Encounter for screening for diseases of the blood and blood-forming organs and certain disorders involving the immune mechanism, Z13.220 - Encounter for screening for lipoid disorders, Z13.228 - Encounter for screening for other metabolic disorders Lyme IgG/IgM w/reflex to WB Today R21 - Rash and other nonspecific skin eruption Lipid Panel 6 Months L40.9 - Psoriasis, unspecified, Z13.0 - Encounter for screening for diseases of the blood and blood-forming organs and certain disorders involving the immune mechanism, Z13.220 - Encounter for screening for lipoid disorders, Z13.228 - Encounter for screening for other metabolic disorders Hemoglobin A1c 6 Months L40.9 - Psoriasis, unspecified, Z13.0 - Encounter for screening for diseases of the blood and blood-forming organs and certain disorders involving the immune mechanism, Z13.220 - Encounter for screening for lipoid disorders, Z13.228 - Encounter for screening for other metabolic disorders Influenza [id number] Immunization Today Z23 - Encounter for immunization Medications: New clotrimazole-betamethasone 1-0.05 % 1 appl topical BID 45 grams 1RF
[2025-03-18 10:28] VITALS: BP 110/84; PULSE 65; RESP 12; TEMP 36.7; O2SAT 94; BMI 29.9
== END 2025-03-18 11:21 | disposition home or self-care (01) ==
LOC: HO.HMCFM 10:03
PROVIDERS: PCP Internal Medicine; Visit Provider Internal Medicine
DX: Z76.89 Persons encountering health services in other specified circumstances (principal); R21 Rash and other nonspecific skin eruption; R97.20 Elevated prostate specific antigen [PSA]; Z23 Encounter for immunization

== ENCOUNTER 2025-03-24 07:34 | Outpatient (REF) | payer BC, SELFPAY ==
--- OUTSIDE RECORDS SUMMARY | 2025-03-24 07:36 | XMS_ITS | Clinical Summary ---
Author Organization [facility] [address] [place] [address] Address [address], [place] Phone Care Team Providers Care District Supervisor Name Role Phone Francisca Shankar MD Primary Care Provider [phone] Encounters Date Type Department Care Team Description 12/23/2024 Telephone Adult Medicine [facility] [address] [place] [address] Francisca Shankar MD from Last 3 Months Surgical History Surgery Date Site/Laterality Comments HERNIA REPAIR 06/09/2000 PROCEDURE: HISTORICAL HERNIA REPAIR/ING VASECTOMY 06/09/1989 PROCEDURE: [place] VASECTOMY UNI/BI SPX W/POSTOP SEMEN EXAMS WISDOM TOOTH EXTRACTION PROCEDURE: HISTORICAL WISDOM TEETH EXTRACTION CHOLECYSTECTOMY 03/19/2021 PROCEDURE: [place] LAPAROSCOPY SURG CHOLECYSTECTOMY Medical History Medical History [...] 80's) colon cancer Sister 1 Alive [facility] y Sister 2 Alive Marlyn [...] Health Maintenance Due Date Last Done Comments Colorectal Cancer Screening: Colonoscopy 1964 Pneumococcal Vaccine: 50+ Years (1 of 2 - PCV) 12/20/1983 RSV Immunization Adult Patients (1 - Risk 50-74 years 1-dose series) 2014 Zoster Vaccines (1 of 2) 2014 Depression Screening 06/09/2024 Cholesterol Screening (Lipid Panel) 09/02/2024 HIV Screening 09/02/2024 Hepatitis C Screening 09/02/2024 Social Influencers of Health Screening 09/02/2024 Influenza Vaccine (#1) 2025 DTaP,Tdap,and Td Vaccines [...] patient's age to complete this topic Insurance [address] [place] [address] Care Teams District Supervisor Relationship Specialty Start Date End Date Francisca Shankar MD [address] [place] [address] PCP - General Internal Medicine 02/15/21
[2025-03-24] MEDS: Lidocaine HCl 1 % MPF 30 ML VIAL SUBCUT (08:35)
--- NOTE | 2025-03-24 09:32 | W.PM.OPN ---
Operative Note Operative Note Date of Service: 03/24/25 Narrative: Preoperative diagnosis: Elevated PSA Postoperative diagnosis: Elevated PSA Procedure: 1. transrectal ultrasound measurement of prostate 2. transrectal ultrasound-guided pudendal nerve block 3. transrectal ultrasound-guided prostate biopsy 12 core Surgeon: Dr. Yunior Lackey Anesthetic: 10cc 1% lidocaine Indications for procedure: Elevated PSA - on testosterone replacement. Prostate MRI 50 g, 2 suspicious areas 1.5 cm PI-RADS 5. Initially scheduled targeted biopsy however was denied by insurance. Counselling: Technical aspects, risks and benefits of proposed procedure were discussed in full. All questions have been answered, written consent has been obtained and patient agrees to proceed. Procedure: The patient was brought into the procedure area and placed in a left lateral decubitus position. Patient identity confirmed. Perioperative antibiotics confirmed. Safety pause time out performed. KEITH was performed to dilate rectal sphincter Iodine 10cc with 60 cc gel was placed per rectum to reduce infection risk using a catheter tip syringe. 8 Hz Jo-Ann rectal end-fire ultrasound probe was placed transrectally without difficulty. The prostate was visualized. Seminal vesicles were normal. Prostate margins were clearly demarcated. Bladder was seen superiorly. No cystic structures were noted No calcifications were noted at the surgical margin The prostate was otherwise homogeneous in nature. No clear disruption of prostatic margin suggestive of significant prostate cancer. The prostate was measured in 3 dimensions Prostatic Width: 4.7 cm Prostatic Height: 4.4 cm Urethral Length: 5.8 cm Total volume equals : 63 ml An ultrasound-guided pudendal nerve block was performed using a 22 gauge spinal needle in the sagittal plane. 4 cc of 1% lidocaine placed at the junction of each seminal vesicle and 2 cc placed at the apex of the prostate. A 12 core biopsy was performed with 6 cores each side using an 18 gauge prostate biopsy gun. Two cores each were taken at the prostate apex, mid and base on each side. Cores were spaced between lateral and medial aspects. Each core was examined as placed on specimen foam as part of quality compliance coordinator to ensure a minimum 1 cm of length and minimal discontinuity. He tolerated the procedure well with minimal rectal bleeding. Blood pressure remained stable following procedure. He was able to ambulate to bathroom after 5 minutes. Printed instructions regarding antibiotic use and common adverse events from the procedure such as low-grade temperature, potential infection and bleeding were given. He understands to call the office or go to an emergency room should any of these events arise. Pathology: 12 core prostate biopsy. CPT code 29211: Transrectal ultrasound; this is a diagnostic test for evaluation of the prostate and surrounding structures, looking for abnormalities or suspicious areas worrisome for cancer CPT code 33206: Biopsy, prostate; needle or punch, single or multiple, any approach CPT code 04458: Ultrasonic guidance for needle placement (eg, biopsy, aspiration, injection, localization device), imaging supervision and interpretation
== END 2025-03-24 07:35 | disposition home or self-care (01) ==
LOC: HO.US 07:34
PROVIDERS: PCP Internal Medicine; Visit Provider Urology
DX: R97.20 Elevated prostate specific antigen [PSA] (principal)
CPT/HCPCS: 55700; 76942; 88305; 88344; J2003

== ENCOUNTER → 2025-03-24 07:34 | Outpatient (BNV) | payer BC, SELFPAY | PROVIDERS: PCP Internal Medicine; Visit Provider Urology | DX: R97.20 Elevated prostate specific antigen [PSA] (principal) | CPT/HCPCS: 55700; 76872; 76942 ==

== ENCOUNTER 2025-04-06 13:11 | Outpatient (AMB) | payer BC, SELFPAY ==
--- NOTE | 2025-04-06 13:12 | A.OFFVIS_ITS ---
Intake Visit Reasons: Prostate biopsy results Intake Note: Patient is present for Tele Prostate Biopsy Results Urology Med: Testosterone, Tadalafil Antibiotic Allergy: None Blood Thinner: None Flight Operations Inspector Required: No Accompanied by: Self / Same As Patient Allergies No Known Allergies Allergy (Verified 04/06/25 13:14) HPI Comments Details: Maxime is a pleasant male. He is seen for the following urologic conditions - hypogonadism - erectile dysfunction Telemedicine Evaluation 15 min Consultation [employer] Susi Video Prostate biopsy negative Discussed results Plan Check Lab work in three-month for testosterone Urinary Symptoms Review - Nocturia: Patient reports getting up once or twice a night, possibly related to increased fluid intake before bed Hypogonadism Long-term replacement Uses IM injections of testosterone 1 week cycle - Inj Sat Lab Wed Laboratory investigations - typically runs in the 5-600 Laboratory investigations - 12/26 PSA 1.5, T 797, 02/27 PSA 7.8, T 182, 04/29 1.7, 10/28 T 750 2.0 48, 04/30 691 P 3.2 49.5, 11/29 993 3.9 51, 05/31 628 6.0 50, 11/30 T 800 Hct 50 PSA 4.5, 07/03 380, 12/31 T 730 P 7.2 H 50 6 month follow-up lab work Elevated PSA 01/31 - MRI Right posterior peripheral zone extending from the apex to the base measuring 2.2 x 1.0 cm, Left posterior peripheral zone extending from the apex to the base measuring approximately 2.2 x 1.1 cm 04/02 PBx - 65 g prostate 12 core negative Erectile dysfunction Able to obtain but cannot maintain erection Continue good response to daily Cialis Move to nightly as had conflict with reflux medications PFSH Medical History Hypogonadism in male Surgical History H/O umbilical hernia repair Hx of cholecystectomy Family History Paternal Uncle Diabetes Paternal Grandmother Colon cancer Social History Housing: House Alcohol intake: current Patient Tobacco Use Status: Never used Tobacco e-Cigarette/Vaping Use: Never Used Second Hand Smoke Exposure: Yes service: No Current occupational status: employed 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, IT Current occupational exposures/hazards: No Cognitive needs: No Hearing needs: No Vision needs: No Review of Systems Const Denies chills and Denies fever(s) Card Reports no additional complaints and Denies syncope Resp Denies cough GI Denies abdominal pain and Denies heartburn Reports as per HPI and Denies change in libido Neuro Denies syncope Psych Denies change in libido Endo Denies change in libido Physical Exam Const General: cooperative, healthy appearing, comfortable and no acute distress Orientation/consciousness: patient oriented x3 HEENT Face and sinus: Yes normal facial exam Mouth: moist mucous membranes Neck Neck: Yes normal visual inspection, Yes full ROM and Yes trachea midline Chest Chest palpation & inspection: normal inspection of the chest Resp Effort & Inspection: normal respiratory effort, able to speak in complete sentences and no respiratory distress GI Inspection: Yes normal to inspection Back/Spine/Pelvis Cervical Spine: normal cervical lordosis Thoracic/Lumbar Spine: thoracic and lumbar spine normal to inspection Skin General skin exam: no rashes or lesions noted Neuro General: patient oriented x3, gait normal, tone normal and moves all extremities Extrem General: Yes normal to inspection and Yes capillary refill normal Telehealth Telehealth Telehealth Platform: [employer] Location of provider rendering services: practice address Location of patient: address on file Patient Identification confirmed using: Name, : Yes Telehealth method: voice only Patient verbally consented to treatment: Yes Patient verbally consented to billing insurance company: Yes Patient informed of any privacy concerns related to visit: Yes Minutes spent on Phone/Video with Pt.: 15 Assessment & Plan Assessment & Plan (1) Hypogonadism in male: Code(s): E29.1 - Testicular hypofunction Category: Medical (2) Erectile dysfunction due to arterial insufficiency: Code(s): N52.01 - Erectile dysfunction due to arterial insufficiency Category: Medical Plan Three-month follow-up check lab work Orders: Orders Testosterone, Total 3 Months E29.1 - Testicular hypofunction Prostate Specific Antigen 3 Months E29.1 - Testicular hypofunction Complete Blood Count no Diff 3 Months E29.1 - Testicular hypofunction Patient Instructions: This note is constructed using voice recognition software. While every effort has been made to ensure accuracy party plan dealer errors may have been included. Imaging studies, laboratory and physical exam results were discussed and reviewed in detail. No major barriers to patient understanding were identified. An opportunity to ask questions regarding the treatment plan was provided. All questions were answered. The patient expressed understanding and agreement with the above treatment plan. The patient is aware they should contact our office by phone for worsening of their current condition or the appearance of new urologic symptoms. Compliance is encouraged with any medications and followup testing that is ordered. It is a privilege to participate in the urologic care of your patient. If you have any questions or concerns regarding treatment for the above conditions, or other urologic issues, please do not hesitate to contact me. The office telephone contact is [phone]. Sincerely, Dr Yunior Lackey MD, [facility] - Urology Compassionate Specialist Care for the Genitourinary System Coding Level of Care Code Tele Est Pt Level 3 (38571) Complex EM visit Add On G2211 Diagnoses Hypogonadism in male E29.1 Erectile dysfunction due to arterial insufficiency N52.01
--- OUTSIDE RECORDS SUMMARY | 2025-04-06 16:47 | XMS_ITS | Clinical Summary ---
Author Organization [address] Address [address] [place] [phone] Phone Care Team Providers Care Communications Assistant Name Role Phone Francisca Shankar MD Primary Care Provider [phone] Surgical History Surgery Date Site/Laterality Comments HERNIA REPAIR 06/09/2000 PROCEDURE: HISTORICAL HERNIA REPAIR/ING VASECTOMY 06/09/1989 PROCEDURE: [place] VASECTOMY UNI/BI SPX W/POSTOP SEMEN EXAMS WISDOM TOOTH EXTRACTION PROCEDURE: HISTORICAL WISDOM TEETH EXTRACTION CHOLECYSTECTOMY 03/19/2021 PROCEDURE: [place] LAPAROSCOPY SURG CHOLECYSTECTOMY Medical History Medical History [...] (Age 80's) colon cancer Sister 1 Alive [facility] y Sister 2 Alive Marlyn healthy Son [...] patient's age to complete this topic Insurance [facility] Care Teams Communications Assistant Relationship Specialty Start Date End Date Francisca Shankar MD [address] [place] [phone] PCP - General Internal Medicine 02/15/21
== END 2025-04-06 14:25 | disposition home or self-care (01) ==
LOC: HO.HUSH 13:12
PROVIDERS: PCP Internal Medicine; Visit Provider Urology
DX: E29.1 Testicular hypofunction (principal); N52.01 Erectile dysfunction due to arterial insufficiency
CPT/HCPCS: 99213